=== PATIENT | male | born 1990 | race Two or more races ===

== ENCOUNTER 2020-12-08 07:09 | Emergency (ER) | payer SELFPAY ==
[~2020-12-08] VITALS: Ht 162.6 cm; Wt 61.7 kg
[2020-12-08 07:15] VITALS: BP 111/78
[2020-12-08] MEDS ORDERED: PRED50TA PO (07:50)
[2020-12-08] MEDS ORDERED: FAMO-131 PO (07:50)
--- NOTE | 2020-12-08 07:55 | NUR ---
Patient discharged to home in stable condition. Written and verbal after care instructions given. Patient verbalizes understanding of instruction.
== END 2020-12-08 07:55 | disposition home or self-care (01) ==
LOC: ER 07:14
DX: R21 Rash and other nonspecific skin eruption (principal); J45.909 Unspecified asthma, uncomplicated; F17.200 Nicotine dependence, unspecified, uncomplicated; Z79.899 Other long term (current) drug therapy

== ENCOUNTER 2022-09-19 13:58 | Emergency (ER) | payer MEDICAID ==
[~2022-09-19] VITALS: Ht 170.2 cm; Wt 64.4 kg
[~2022-09-19 13:58] MED LIST: FAMO-131 PO; PRED50TA PO
[2022-09-19 15:45] VITALS: BP 134/88; TEMP 98.4; O2SAT 98
== END 2022-09-19 15:45 | disposition home or self-care (01) ==
LOC: ER 14:02
DX: S90.32XA Contusion of left foot, initial encounter (principal); J45.909 Unspecified asthma, uncomplicated; F17.200 Nicotine dependence, unspecified, uncomplicated; Z79.899 Other long term (current) drug therapy; W20.8XXA Other cause of strike by thrown, projected or falling object, initial encounter; Y93.89 Activity, other specified; Y92.89 Other specified places as the place of occurrence of the external cause; Y99.8 Other external cause status
CPT/HCPCS: 73590-TC; 73630-TC

== ENCOUNTER 2022-12-05 10:43 | Emergency (ER) | payer MEDICAID ==
[~2022-12-05] VITALS: Ht 167.6 cm; Wt 64.9 kg
[2022-12-05 10:43] VITALS: BP 127/71; TEMP 98.1
[2022-12-05 10:55] VITALS: O2SAT 98
[2022-12-05] MEDS ORDERED: NAPR-1009 PO (11:45)
== END 2022-12-05 12:22 | disposition home or self-care (01) ==
LOC: ER 10:43
DX: S93.491A Sprain of other ligament of right ankle, initial encounter (principal); J45.909 Unspecified asthma, uncomplicated; F17.200 Nicotine dependence, unspecified, uncomplicated; Z79.899 Other long term (current) drug therapy; W01.0XXA Fall on same level from slipping, tripping and stumbling without subsequent striking against object, initial encounter; Y93.89 Activity, other specified; Y92.89 Other specified places as the place of occurrence of the external cause; Y99.8 Other external cause status
CPT/HCPCS: 73610-TC; 73630-TC